=== PATIENT | male | born 1975 | race Caucasian/White ===

== ENCOUNTER 2016-05-14 17:21 | Inpatient (IN) | payer OTHER ==
[2016-05-14] MEDS ORDERED: KETOROLAC 30 MG/1 ML SDV IVP ONE (17:46)
[2016-05-14] MEDS ORDERED: ONDANSETRON 4 MG/2 ML VIAL IVP ONE (17:46)
[2016-05-14] MEDS ORDERED: NS 1,000 ML IV ONE ×2 (17:46→18:51)
[2016-05-14 17:57] LABS: % IMMATURE GRANULYOCYTES 0.2 % (0.0-1.1); ABSOLUTE IMMATURE GRANULOCYTES 0.03 10^3/uL (0.00-0.10); ADD DIFF? NO; ADD MORPH? NO; ADD SCAN? NO; ATYPICAL LYMPHOCYTE FLAG 0 (0-99); FRAGMENT RBC FLAG 0 (0-99); HEMATOCRIT 51.2 % (40.0-51.0); HEMOGLOBIN 18.5 g/dL (13.7-17.5); LEFT SHIFT FLG 0 (0-99); LIPEMIA HEMOLYSIS FLAG 90 (0-99); MEAN CELL HEMOGLOBIN 34.1 pg (27.9-34.1); MEAN CELL HEMOGLOBIN CONCENTR. 36.1 g/dL (32.4-36.7); MEAN CELL VOLUME 94.3 fL (81.5-99.8); MEAN PLATELET VOLUME 9.2 fL (8.7-11.7); PLATELET CLUMPS FLAG 10 (0-99); PLATELET COUNT 206 10^3/uL (150-400); RED BLOOD CELL COUNT 5.43 10^6/uL (4.40-6.38); RED CELL DISTRIBUTION WIDTH 12.8 % (11.5-15.2)
[2016-05-14 18:10] LABS: ALANINE AMINOTRANSFERASE 173 IU/L (21-72); ALBUMIN 3.9 g/dL (3.5-5.0); ALKALINE PHOSPHATASE 105 IU/L (38-126); ANION GAP 20 mEq/L (8-16); ASPARTATE AMINOTRANSFERASE 117 IU/L (17-59); BILIRUBIN,TOTAL 1.4 mg/dL (0.1-1.4); CALCIUM 9.3 mg/dL (8.5-10.4); CARBON DIOXIDE 23 mEq/l (22-31); CHLORIDE 98 mEq/L (97-110); CREATININE 0.9 mg/dL (0.7-1.3); GLOMERULAR FILTRATION RATE > 60; GLUCOSE 173 mg/dL (70-100); POTASSIUM 3.8 mEq/L (3.5-5.2); SODIUM 141 mEq/L (134-144); TOTAL PROTEIN 7.7 g/dL (6.3-8.2)
--- NOTE | 2016-05-14 19:12 | UCPHY ---
H & P Patient Type: New Chief Complaint Nursing Narrative: sharp pain left side and abdomen for 2 days Time Seen by Provider: 05/14/16 17:45 HPI/ROS: This patient reports gradual onset of abdominal pain yesterday in the epigastrium and left upper belly radiating to the back. He describes the pain is initially achy and now sharp in nature. The intensity steadily increased since that 1st started is now 8/10 intensity. The pain worsens with movement he notes no other exacerbating factors. He started having nausea and vomiting associated with the symptoms this morning and vomited 3 times since this morning. He has never had this pain before. ROS: No high fevers or chills. No other constitutional symptoms. HEENT: No URI symptoms. No sore throat. No other complaints. Neuro: No headache. No focal numbness tingling or weakness. Pulmonary: No cough. No shortness of breath. Cardiovascular: No lightheadedness. He denies any heart palpitations. No lower extremity swelling. GI: No hematemesis. He reports normal bowel movements. No dark tarry stools. He does report intermittent mild epigastric pain over the proceeding month with partial relief from omeprazole. : No hematuria. No burning with urination. No testicle pain. Musculoskeletal: No complaints integumentary: No skin rash. 10 point ROS is otherwise negative. Source: Patient Exam Limitations: No limitations - Personal History Current Tetanus Diphtheria and Acellular Pertussis (TDAP): Yes - Medical/Surgical History Hx Asthma: No Hx Chronic Respiratory Disease: No Hx Diabetes: No Hx Cardiac Disease: No Hx Renal Disease: No Hx Cirrhosis: No Hx Alcoholism: No Hx HIV/AIDS: No Hx Splenectomy or Spleen Trauma: No Other PMH: duodenal ulcer - Family History Significant Family History: No pertinent family hx - Social History Smoking Status: Never smoked Alcohol Use: Heavy (The patient admits drinking for 5 drinks a day combination of beers and mixed drinks.) Drug Use: None - Physical Exam Exam: General Appearance: Alert, no distress. Eyes: Pupils equal and round no pallor or injection. ENT, Mouth: Mucous membranes moist. Respiratory: There are no retractions, lungs are clear to auscultation. Cardiovascular: Regular rate and rhythm. Gastrointestinal: Hypoactive bowel sounds with mild distension. The patient has epigastric and left upper quadrant tenderness that is moderate to exquisite. No lower belly tenderness. No organomegaly. Back: No CVA tenderness Neurological: GCS of 15 with no focal sensory or motor deficits Skin: Warm and dry, no rashes. Musculoskeletal: Neck is supple nontender. Extremities are symmetrical, full range of motion. Psychiatric: Mood and affect are normal DIFFERENTIAL DIAGNOSIS: After history and physical exam differential diagnosis was considered for pancreatitis, cholecystitis, ulcer, gastritis, ureteral stone , UTI Constitutional: Initial Vital Signs Temperature (C) 37.2 C 05/14/16 17:30 Heart Rate 101 H 05/14/16 17:30 Respiratory Rate 16 05/14/16 17:30 Blood Pressure 142/81 H 05/14/16 17:30 O2 Sat (%) 96 05/14/16 17:30 O2 Delivery Mode Room Air Allergies/Adverse Reactions: No Known Allergies Allergy (Unverified 05/14/16 17:30) Home Medications: Medication Instructions Recorded Finasteride 05/14/16 Medical Decision Making ED Course/Re-evaluation: IV normal saline bolus. Toradol without significant relief. Morphine with partial relief of pain. Zofran with relief of nausea. Review of his labs reveals elevated lipase, mildly elevated LFTs, mild leukocytosis and hemoconcentration with a crit of 51. His history of regular alcohol intake and pancreatitis is most consistent with alcohol pancreatitis. Cannot rule out gallstone pancreatitis without imaging. At this time we have no ultrasound here at the clinic. Patient agrees to be admitted to [facility]. I spoke with Dr. Barrie Cervantes-hospitalist accepts patient for transfer - Data Points Laboratory Results: Laboratory Results 05/14/16 17:50 05/14/16 17:50 05/14/16 05/14/16 17:50 17:50 WBC 12.76 10^3/uL H 10^3/uL (3.80-9.50) RBC 5.43 10^6/uL 10^6/uL (4.40-6.38) Hgb 18.5 g/dL H g/dL (13.7-17.5) Hct 51.2 % H % (40.0-51.0) MCV 94.3 fL fL (81.5-99.8) MCH 34.1 pg pg (27.9-34.1) MCHC 36.1 g/dL g/dL (32.4-36.7) RDW 12.8 % % (11.5-15.2) Plt Count 206 10^3/uL 10^3/uL (150-400) MPV 9.2 fL fL (8.7-11.7) Neut % (Auto) 83.9 % H % (39.3-74.2) Lymph % (Auto) 10.1 % L % (15.0-45.0) [place] % (Auto) 5.6 % % (4.5-13.0) Eos % (Auto) 0.0 % L % (0.6-7.6) Baso % (Auto) 0.2 % L % (0.3-1.7) Nucleat RBC Rel Count 0.0 % % (0.0-0.2) Absolute Neuts (auto) 10.71 10^3/uL H 10^3/uL (1.70-6.50) Absolute Lymphs (auto) 1.29 10^3/uL 10^3/uL (1.00-3.00) Absolute Monos (auto) 0.71 10^3/uL 10^3/uL (0.30-0.80) Absolute Eos (auto) 0.00 10^3/uL L 10^3/uL (0.03-0.40) Absolute Basos (auto) 0.02 10^3/uL 10^3/uL (0.02-0.10) Absolute Nucleated RBC 0.00 10^3/uL 10^3/uL (0-0.01) Immature Gran % 0.2 % % (0.0-1.1) Immature Gran # 0.03 10^3/uL 10^3/uL (0.00-0.10) Sodium 141 mEq/L mEq/L (134-144) Potassium 3.8 mEq/L mEq/L (3.5-5.2) Chloride 98 mEq/L mEq/L (97-110) Carbon Dioxide 23 mEq/l mEq/l (22-31) Anion Gap 20 mEq/L H mEq/L (8-16) BUN 6 mg/dL L mg/dL (7-23) Creatinine 0.9 mg/dL mg/dL (0.7-1.3) Estimated GFR > 60 Glucose 173 mg/dL H mg/dL (70-100) Calcium 9.3 mg/dL mg/dL (8.5-10.4) Total Bilirubin 1.4 mg/dL mg/dL (0.1-1.4) AST 117 IU/L H IU/L (17-59) ALT 173 IU/L H IU/L (21-72) Alkaline Phosphatase 105 IU/L IU/L (38-126) Total Protein 7.7 g/dL g/dL (6.3-8.2) Albumin 3.9 g/dL g/dL (3.5-5.0) Lipase 4838.0 IU/L H IU/L (23-300) Medications Given: Discontinued Medications Sodium Chloride (Ns) 1,000 mls @ 0 mls/hr IV ONCE ONE PRN Reason: Wide Open Stop: 05/14/16 17:47 Last Admin: 05/14/16 17:59 Dose: 1,000 mls Ketorolac Tromethamine (Toradol) 15 mg IVP EDNOW ONE Stop: 05/14/16 17:47 Last Admin: 05/14/16 18:00 Dose: 15 mg Morphine Sulfate (Morphine) 5 mg IVP EDNOW ONE Stop: 05/14/16 18:21 Last Admin: 05/14/16 18:28 Dose: 5 mg Ondansetron HCl (Zofran) 4 mg IVP EDNOW ONE Stop: 05/14/16 17:47 Last Admin: 05/14/16 18:00 Dose: 4 mg Departure - Departure Disposition: [facility] Inpatient Acute Clinical Impression: Acute pancreatitis Qualifiers: Pancreatitis type: alcohol induced Acute pancreatitis complication: unspecified Qualified Code(s): K85.20 - Alcohol induced acute pancreatitis without necrosis or infection Condition: Fair Referrals: Kamaljit Santos DO [Primary Care Provider] - As per Instructions - PQRS PQRS Measurement: NA
[2016-05-14] MEDS: NS 1,000 ML IV SCH ×2 (19:50→21:58)
[2016-05-14] MEDS ORDERED: ONDANSETRON DISINTEGRATING 4 MG TAB PO PRN (22:16)
[2016-05-14] MEDS ORDERED: PROMETHAZINE HCL 25 MG TAB PO PRN (22:16)
[2016-05-14] MEDS ORDERED: ACETAMINOPHEN 325 MG TAB PO PRN (22:16)
[2016-05-14] MEDS ORDERED: LORazepam 2 MG/ML INJ IVP PRN (22:16)
[2016-05-14] MEDS ORDERED: MAG HYDROX/AL HYDROX/SIMETH 30 ML UDCUP PO PRN (22:16)
[2016-05-14] MEDS ORDERED: NS 1,000 ML IV SCH (22:30)
--- NOTE | 2016-05-14 22:51 | PDGENHP ---
History and Physical - Chief Complaint abd pain - History of Present Illness 41 yo M with no significant PMH other than etoh abuse and recent diagnosis of presumed PUD presenting with abdominal pain, n/v, inability to tolerate PO since yesterday. He notes that it began similarly to his recent bouts with presumed ulcers that was diagnosed and treated by his PCP, but then got much worse. His prior bouts went away with antacids, but since last night into today , he has had significantly worsening abdominal pain, that is now severe and only minimally improved after 6mg morphine IVP. Eating made the pain much worse , and he has not eaten since yesterday. He notes that he has been under a lot of stress recently around the loss of his job and not having a strong support system to fall back on, and for that reason, he has been drinking more alcohol than usual. When I ask how much, he replies "a lot" and really isn't able to quantify further. He notes he drinks at least 5 x week and previously was drinking around 5 drinks per day, but now drinks more than that. He often wakes up in the morning and has to vomit. He has not had withdrawal symptoms on the days he does not drink. He has not had bloody or coffee ground-like emesis. He has not had a BM in 2 days, and is not passing gas. Urination has been normal, and last urination was 2 hours ago. History Information - Allergies/Home Medication List Allergies/Adverse Reactions: No Known Allergies Allergy (Unverified 05/14/16 17:30) Home Medications: Finasteride [Propecia] 0.5 mg PO DAILY 05/14/16 [Last Taken 05/13/16] Temazepam Unk Dose HS 05/14/16 [Last Taken Unknown] I have personally reviewed and updated: family history, medical history, social history, surgical history - Past Medical History GERD Additional medical history: alcohol abuse - Surgical History Reports: no pertinent surgical hx - Family History Positive for: non-pertinent - Social History Smoking Status: Never smoked Alcohol Use: Heavy (The patient admits drinking for 5 drinks a day combination of beers and mixed drinks.) Drug Use: None Review of Systems ROS: 10pt was reviewed & negative except for what was stated in HPI & below Physical Exam Temp Pulse Resp BP Pulse Ox 36.8 C 114 H 22 H 131/89 H 97 05/14/16 21:22 05/14/16 21:22 05/14/16 21:22 05/14/16 21:22 05/14/16 21:22 Constitutional: appears nourished, uncomfortable Eyes: PERRL, anicteric sclera Ears, Nose, Mouth, Throat: moist mucous membranes, hearing normal Cardiovascular: no murmur, rub, or gallop, tachycardia, No edema Respiratory: no respiratory distress, no rales or rhonchi, clear to auscultation Gastrointestinal: no palpable masses, tenderness, distension, No normoactive bowel sounds, No ascites, No guarding, No rebound Genitourinary: no bladder tenderness Skin: warm, normal color Musculoskeletal: full muscle strength, no muscle tenderness Neurologic: AAOx3 Psychiatric: interacting appropriately, not anxious, not encephalopathic Lab Data & Imaging Review 05/14/16 17:50 05/14/16 17:50 WBC 12.76 10^3/uL (3.80-9.50) H 05/14/16 17:50 RBC 5.43 10^6/uL (4.40-6.38) 05/14/16 17:50 Hgb 18.5 g/dL (13.7-17.5) H 05/14/16 17:50 Hct 51.2 % (40.0-51.0) H 05/14/16 17:50 MCV 94.3 fL (81.5-99.8) 05/14/16 17:50 MCH 34.1 pg (27.9-34.1) 05/14/16 17:50 MCHC 36.1 g/dL (32.4-36.7) 05/14/16 17:50 RDW 12.8 % (11.5-15.2) 05/14/16 17:50 Plt Count 206 10^3/uL (150-400) 05/14/16 17:50 MPV 9.2 fL (8.7-11.7) 05/14/16 17:50 Neut % (Auto) 83.9 % (39.3-74.2) H 05/14/16 17:50 Lymph % (Auto) 10.1 % (15.0-45.0) L 05/14/16 17:50 [place] % (Auto) 5.6 % (4.5-13.0) 05/14/16 17:50 Eos % (Auto) 0.0 % (0.6-7.6) L 05/14/16 17:50 Baso % (Auto) 0.2 % (0.3-1.7) L 05/14/16 17:50 Nucleat RBC Rel Count 0.0 % (0.0-0.2) 05/14/16 17:50 Absolute Neuts (auto) 10.71 10^3/uL (1.70-6.50) H 05/14/16 17:50 Absolute Lymphs (auto) 1.29 10^3/uL (1.00-3.00) 05/14/16 17:50 Absolute Monos (auto) 0.71 10^3/uL (0.30-0.80) 05/14/16 17:50 Absolute Eos (auto) 0.00 10^3/uL (0.03-0.40) L 05/14/16 17:50 Absolute Basos (auto) 0.02 10^3/uL (0.02-0.10) 05/14/16 17:50 Absolute Nucleated RBC 0.00 10^3/uL (0-0.01) 05/14/16 17:50 Immature Gran % 0.2 % (0.0-1.1) 05/14/16 17:50 Immature Gran # 0.03 10^3/uL (0.00-0.10) 05/14/16 17:50 Sodium 141 mEq/L (134-144) 05/14/16 17:50 Potassium 3.8 mEq/L (3.5-5.2) 05/14/16 17:50 Chloride 98 mEq/L (97-110) 05/14/16 17:50 Carbon Dioxide 23 mEq/l (22-31) 05/14/16 17:50 Anion Gap 20 mEq/L (8-16) H 05/14/16 17:50 BUN 6 mg/dL (7-23) L 05/14/16 17:50 Creatinine 0.9 mg/dL (0.7-1.3) 05/14/16 17:50 Estimated GFR > 60 05/14/16 17:50 Glucose 173 mg/dL (70-100) H 05/14/16 17:50 Calcium 9.3 mg/dL (8.5-10.4) 05/14/16 17:50 Total Bilirubin 1.4 mg/dL (0.1-1.4) 05/14/16 17:50 AST 117 IU/L (17-59) H 05/14/16 17:50 ALT 173 IU/L (21-72) H 05/14/16 17:50 Alkaline Phosphatase 105 IU/L (38-126) 05/14/16 17:50 Total Protein 7.7 g/dL (6.3-8.2) 05/14/16 17:50 Albumin 3.9 g/dL (3.5-5.0) 05/14/16 17:50 Lipase 4838.0 IU/L (23-300) H 05/14/16 17:50 Assessment & Plan Assessment: Acute pancreatitis (Acute) 41 yo M with PMH of etoh abuse and recent increased alcohol use presenting with epigastric abd pain/n/v in the setting of acute pancreatitis. # acute pancreatitis: Presumed 2/2 alcoholic pancreatitis given the history. He has mildly elevated LFTs and lipase > 4000, will trend LFTs, will obtain RUQ US to r/o concurrent gallstones or e/o chronic liver disease. NPO, IV opiates, IV antiemetics. # etoh abuse: patient not able to give a clear answer of how much he is drinking , but sounds like anywhere from 5-10 or more drinks per day with rare days without etoh intake. High risk for withdrawal. Started on ciwa, mvi, thiamine, folate. Difficult to assess his readiness to quit given his acute distress from above. # transaminitis: mild and in setting of acute pancreatitis as above, alt > ast and not clearly c/w alc hep, trending, ruq US, consider addition of hep serologies if not improving # hx of ulcers: unclear if this was an accurate diagnosis or if patient might have been having bouts of pancreatitis prior to this presentation given that sxs were essentially the same, # hemoconcentration: wbc/hgb/hct all elevated in the setting of likely hemoconcentration, will repeat post IVF # dispo: observation status, though given severity of presenting issues he may require IP stay Patient new to my care. Urgent care records reviewed, summarized as above. Care plan reviewed with physician including plans for tx of pancreatitis.
[2016-05-14] MEDS: HYDROmorphONE/DILAUDID 1 MG/ML SYR IVP PRN (22:55)
[2016-05-14] MEDS: KETOROLAC 30 MG/1 ML SDV IVP PRN (22:58)
[2016-05-14] MEDS: LORazepam 1 MG TAB PO PRN (22:59)
[2016-05-15] MEDS: HYDROmorphONE/DILAUDID 1 MG/ML SYR IVP PRN ×4 (05:40→17:48)
[2016-05-15] MEDS: KETOROLAC 30 MG/1 ML SDV IVP PRN ×3 (05:40→20:21)
[2016-05-15] MEDS: LORazepam 1 MG TAB PO PRN ×3 (05:42→21:20)
[2016-05-15 06:00] LABS: % IMMATURE GRANULYOCYTES 0.3 % (0.0-1.1); ABSOLUTE IMMATURE GRANULOCYTES 0.04 10^3/uL (0.00-0.10); ADD DIFF? NO; ADD MORPH? NO; ADD SCAN? NO; ATYPICAL LYMPHOCYTE FLAG 0 (0-99); FRAGMENT RBC FLAG 0 (0-99); HEMATOCRIT 48.2 % (40.0-51.0); HEMOGLOBIN 17.1 g/dL (13.7-17.5); LEFT SHIFT FLG 30 (0-99); LIPEMIA HEMOLYSIS FLAG 90 (0-99); MEAN CELL HEMOGLOBIN 33.9 pg (27.9-34.1); MEAN CELL HEMOGLOBIN CONCENTR. 35.5 g/dL (32.4-36.7); MEAN CELL VOLUME 95.6 fL (81.5-99.8); MEAN PLATELET VOLUME 9.8 fL (8.7-11.7); PLATELET CLUMPS FLAG 30 (0-99); PLATELET COUNT 160 10^3/uL (150-400); RED BLOOD CELL COUNT 5.04 10^6/uL (4.40-6.38); RED CELL DISTRIBUTION WIDTH 13.4 % (11.5-15.2)
[2016-05-15 06:03] LABS: COLOR AMBER; LEUKOCYTE ESTERASE,URINE NEGATIVE (NEGATIVE); NITRITE,URINE NEGATIVE (NEGATIVE)
[2016-05-15 06:11] LABS: MUCUS 2+ /lpf (NONE-1+)
[2016-05-15 06:33] LABS: ALANINE AMINOTRANSFERASE 109 IU/L (21-72); ALBUMIN 3.4 g/dL (3.5-5.0); ALKALINE PHOSPHATASE 58 IU/L (38-126); ANION GAP 9 mEq/L (8-16); ASPARTATE AMINOTRANSFERASE 77 IU/L (17-59); BILIRUBIN,TOTAL 2.1 mg/dL (0.1-1.4); CALCIUM 7.6 mg/dL (8.5-10.4); CARBON DIOXIDE 23 mEq/l (22-31); CHLORIDE 107 mEq/L (97-110); CREATININE 0.8 mg/dL (0.7-1.3); GLOMERULAR FILTRATION RATE > 60; GLUCOSE 140 mg/dL (70-100); MAGNESIUM 1.3 mg/dL (1.6-2.3); POTASSIUM 4.3 mEq/L (3.5-5.2); SODIUM 139 mEq/L (134-144); TOTAL PROTEIN 6.3 g/dL (6.3-8.2)
[2016-05-15 06:42] LABS: BILIRUBIN-CONJUGATED 0.9 mg/dL (0.0-0.5); BILIRUBIN-UNCONJUGATED 1.2 mg/dL (0.0-1.1)
[2016-05-15] MEDS: FAMOTIDINE 20 MG TAB PO SCH ×2 (11:47→21:21)
[2016-05-15] MEDS ORDERED: MAGNESIUM HYDROXIDE 30 ML UDCUP PO PRN (12:53)
[2016-05-15] MEDS ORDERED: BISACODYL 10 MG SUPP PR PRN (12:53)
[2016-05-15] MEDS ORDERED: POLYETHYLENE GLYCOL 3350 17 GM PKT PO PRN (12:53)
[2016-05-15] MEDS ORDERED: LACTULOSE 20 GM/30 ML UDCUP PO PRN (12:53)
[2016-05-15] MEDS ORDERED: TEMAZEPAM 15 MG CAP PO PRN (12:53)
--- NOTE | 2016-05-15 12:54 | HOSPPROG ---
Hospitalist Progress Note Assessment/Plan: #Alcoholic pancreatitis: no stones on U/S -keep NPO, IVFs, IV opioids PRN #Abd distension: constipated. No ascites on U/S #Alcohol abuse: has had several stressors over past few months, thus drinking more. Wants to quit. Declines further assistance. CIWA #Acute abd pain: due to pancreatitis. Cont IV opioids #Transaminitis: improving. Due to Etoh #Leukocytosis: stress-response. Afebrile. Cont to monitor #Diet: NPO, IVFs #Disp: Dc once tolerating PO pain meds and food Subjective: still 6/10 pain this morning. Constipated Objective: Vital Signs Temp Pulse Resp BP Pulse Ox 36.7 C 110 H 20 123/92 H 97 05/15/16 09:04 05/15/16 09:04 05/15/16 09:04 05/15/16 09:04 05/15/16 09:04 Laboratory Results 05/15/16 05:40 05/15/16 05:40 05/14/16 05/15/16 05/16/16 05:59 05:59 05:59 Intake Total 3815 Output Total 300 200 Balance 3515 -200 - Physical Exam Constitutional: no apparent distress Eyes: PERRL Ears, Nose, Mouth, Throat: moist mucous membranes, hearing normal Cardiovascular: regular rate and rhythym, no murmur, rub, or gallop Respiratory: no respiratory distress, no rales or rhonchi Gastrointestinal: normoactive bowel sounds, distension (no TTP) Genitourinary: no bladder fullness, no bladder tenderness Skin: warm, normal color Musculoskeletal: full muscle strength Neurologic: AAOx3, CN II-XII Intact, other (no tremor) Psychiatric: interacting appropriately ICD10 Worksheet Patient Problems: Problems Problem Status Onset Acute pancreatitis Acute
[2016-05-15] MEDS: NS 1,000 ML IV SCH ×3 (13:13→21:27)
[2016-05-15] MEDS: MULTIVITAMINS 1 EACH TAB PO SCH (13:18)
[2016-05-15] MEDS: FOLIC ACID 1 MG TAB PO SCH (13:18)
[2016-05-15] MEDS: THIAMINE HCL 100 MG TAB PO SCH (13:18)
[2016-05-15] MEDS: THIAMINE HCL 100 MG in NS 100 ML IV SCH (15:04)
[2016-05-15] MEDS: SENNOSIDES/DOCUSATE SODIUM TAB PO SCH (21:27)
[2016-05-16] MEDS: LORazepam 1 MG TAB PO PRN ×4 (01:02→17:07)
[2016-05-16] MEDS: HYDROmorphONE/DILAUDID 1 MG/ML SYR IVP PRN (01:17)
[2016-05-16] MEDS: NS 1,000 ML IV SCH (01:17)
[2016-05-16 05:34] LABS: HEMATOCRIT 44.9 % (40.0-51.0); HEMOGLOBIN 15.3 g/dL (13.7-17.5); MEAN CELL HEMOGLOBIN 33.6 pg (27.9-34.1); MEAN CELL HEMOGLOBIN CONCENTR. 34.1 g/dL (32.4-36.7); MEAN CELL VOLUME 98.7 fL (81.5-99.8); RED BLOOD CELL COUNT 4.55 10^6/uL (4.40-6.38); RED CELL DISTRIBUTION WIDTH 13.2 % (11.5-15.2)
[2016-05-16 05:48] LABS: ANION GAP 11 mEq/L (8-16); CARBON DIOXIDE 20 mEq/l (22-31); CHLORIDE 105 mEq/L (97-110); CREATININE 0.9 mg/dL (0.7-1.3); GLOMERULAR FILTRATION RATE > 60; GLUCOSE 91 mg/dL (70-100); MAGNESIUM 1.3 mg/dL (1.6-2.3); POTASSIUM 4.1 mEq/L (3.5-5.2); SODIUM 136 mEq/L (134-144)
[2016-05-16] MEDS: KETOROLAC 30 MG/1 ML SDV IVP PRN (08:12)
[2016-05-16] MEDS: FOLIC ACID 1 MG TAB PO SCH (08:12)
[2016-05-16] MEDS: THIAMINE HCL 100 MG TAB PO SCH (08:12)
[2016-05-16] MEDS: FAMOTIDINE 20 MG TAB PO SCH ×2 (08:12→20:55)
[2016-05-16] MEDS: MULTIVITAMINS 1 EACH TAB PO SCH (08:12)
[2016-05-16] MEDS: SENNOSIDES/DOCUSATE SODIUM TAB PO SCH ×2 (08:13→20:55)
[2016-05-16] MEDS ORDERED: KETOROLAC 30 MG/1 ML SDV IVP PRN (10:09)
[2016-05-16] MEDS: ENOXAPARIN 40 MG/0.4 ML SYR SC SCH (10:41)
[2016-05-16] MEDS: chlordiazePOXIDE 25 MG CAP PO SCH ×2 (10:41→20:55)
[2016-05-16] MEDS: THIAMINE HCL 100 MG in NS 100 ML IV SCH (10:47)
[2016-05-16] MEDS: IPRATROPIUM/ALBUTEROL 3 ML DEYVIAL IH PRN (14:23)
--- NOTE | 2016-05-16 14:45 | HOSPPROG ---
Hospitalist Progress Note Assessment/Plan: Assessment: 41-year-old male presents with acute alcohol-induced pancreatitis complicated by acute alcohol withdrawal, systemic inflammatory response syndrome Plan: # Alcoholic-induced pancreatitis: evidenced by epigastric pain, elevated lipase , no stones on U/S - crissy sips, adv to full liq and light if tolerates - cont IVF at 100cc/hr - cycle in PO pain Rx w/ IV for breakthrough # Constipation: bowel regimen # Acute alcohol withdraw: evidenced by tachycardia + tremulousness, cont to score on CIWA - counseled patient about strategies, will place on scheduled librium, cont PRN ativan - clinically escalating, remains unresolved # Transaminitis: 2/2 alcohol w/ steatosis on US, cont to monitor # SIRS: acute, e/o clinically unresolved pancreatitis/withdraw, get CXR to ensure no volume overload in setting of IVF Diet. Full liq, adv as crissy PPx. High risk, lovenox 40 Code. Full Dispo. ADD uncertain, upgrade to inpatient admission status for reasonable medical necessity re: clinically unresolved pancreatitis and acute alcohol withdraw, SIRS worsening today Subjective: Patient reports ongoing anxiety and intermittent abdominal pain Objective: Vital Signs Temp Pulse Resp BP Pulse Ox 36.9 C 144 H 19 124/81 H 98 05/16/16 11:23 05/16/16 14:34 05/16/16 11:23 05/16/16 11:23 05/16/16 14:34 Laboratory Results 05/16/16 05:20 05/16/16 05:20 05/15/16 05/16/16 05/17/16 05:59 05:59 05:59 Intake Total 1400 Output Total 925 Balance 475 - Time Spent With Patient Time Spent with Patient: greater than 35 minutes Time Spent with Patient: Greater than 35 minutes spent on this patients care, greater than 50% of time spent counseling, educating, and coordinating care regarding the above mentioned plan. - Physical Exam Constitutional: uncomfortable, No not in pain Cardiovascular: tachycardia, No systolic murmur, No irregularly irregular, No edema Respiratory: no respiratory distress, no rales or rhonchi, clear to auscultation Gastrointestinal: distension (Moderate), No normoactive bowel sounds ( Diminished bowel sounds), No guarding Neurologic: AAOx3, No asterixes (Tremulousness present) Psychiatric: not encephalopathic, anxious, No agitated ICD10 Worksheet Patient Problems: Problems Problem Status Onset Acute pancreatitis Acute
[2016-05-16] MEDS: oxyCODONE IR 5 MG TAB PO PRN (15:56)
[2016-05-17] MEDS: oxyCODONE IR 5 MG TAB PO PRN ×2 (00:06→07:34)
[2016-05-17] MEDS: IPRATROPIUM/ALBUTEROL 3 ML DEYVIAL IH PRN (00:59)
[2016-05-17 05:28] LABS: % IMMATURE GRANULYOCYTES 1.2 % (0.0-1.1); ABSOLUTE IMMATURE GRANULOCYTES 0.12 10^3/uL (0.00-0.10); ADD DIFF? NO; ADD MORPH? NO; ADD SCAN? NO; ATYPICAL LYMPHOCYTE FLAG 0 (0-99); FRAGMENT RBC FLAG 0 (0-99); HEMATOCRIT 46.6 % (40.0-51.0); HEMOGLOBIN 16.1 g/dL (13.7-17.5); LEFT SHIFT FLG 50 (0-99); LIPEMIA HEMOLYSIS FLAG 90 (0-99); MEAN CELL HEMOGLOBIN CONCENTR. 34.5 g/dL (32.4-36.7); MEAN CELL VOLUME 98.3 fL (81.5-99.8); MEAN PLATELET VOLUME 10.3 fL (8.7-11.7); PLATELET CLUMPS FLAG 0 (0-99); PLATELET COUNT 138 10^3/uL (150-400); RED BLOOD CELL COUNT 4.74 10^6/uL (4.40-6.38)
[2016-05-17 05:37] LABS: ALANINE AMINOTRANSFERASE 75 IU/L (21-72); ALBUMIN 3.2 g/dL (3.5-5.0); ALKALINE PHOSPHATASE 65 IU/L (38-126); ANION GAP 15 mEq/L (8-16); ASPARTATE AMINOTRANSFERASE 61 IU/L (17-59); BILIRUBIN,TOTAL 1.7 mg/dL (0.1-1.4); CALCIUM 8.1 mg/dL (8.5-10.4); CARBON DIOXIDE 23 mEq/l (22-31); CHLORIDE 102 mEq/L (97-110); CREATININE 0.8 mg/dL (0.7-1.3); GLOMERULAR FILTRATION RATE > 60; GLUCOSE 110 mg/dL (70-100); MAGNESIUM 1.7 mg/dL (1.6-2.3); POTASSIUM 3.3 mEq/L (3.5-5.2); SODIUM 140 mEq/L (134-144); TOTAL PROTEIN 6.5 g/dL (6.3-8.2)
[2016-05-17 08:17] VITALS: BP 135/82; PULSE 116; RESP 18; TEMP 98.3
[2016-05-17] MEDS ORDERED: MAGNESIUM SULF 1 GM/DEXTROSE 100 ML IV ONE (08:59)
[2016-05-17] MEDS ORDERED: POTASSIUM CL 20 MEQ TAB PO ONE (08:59)
[2016-05-17] MEDS ORDERED: FINASTERIDE 0.5 MG PO SCH (09:00)
[2016-05-17] MEDS: chlordiazePOXIDE 25 MG CAP PO SCH (09:05)
[2016-05-17] MEDS: FAMOTIDINE 20 MG TAB PO SCH (09:05)
[2016-05-17] MEDS: THIAMINE HCL 100 MG TAB PO SCH (09:05)
[2016-05-17] MEDS: FOLIC ACID 1 MG TAB PO SCH (09:05)
[2016-05-17] MEDS: MULTIVITAMINS 1 EACH TAB PO SCH (09:05)
[2016-05-17] MEDS: SENNOSIDES/DOCUSATE SODIUM TAB PO SCH (09:13)
[2016-05-17] MEDS: ENOXAPARIN 40 MG/0.4 ML SYR SC SCH (09:17)
--- NOTE | 2016-05-17 11:54 | PDDCSUM ---
Discharge Summary Discharge Summary: DISCHARGE SUMMARY FOLLOW-UP ITEMS: Follow-up liver panel and CBC as an outpatient DATE OF ADMISSION: 05/14/2016 DATE OF DISCHARGE: 05/17/2016 DISCHARGE DIAGNOSES: 1. Acute alcohol induced pancreatitis 2. Acute alcohol withdrawal 3. Systemic inflammatory response syndrome 4. Transaminitis CONSULTATIONS: None PROCEDURES / IMAGING: Chest x-ray demonstrating no evidence of volume overload CHIEF COMPLAINT: Acute nausea and abdominal discomfort SUBJECTIVE: Patient is feeling well at time of discharge, he has required some oral pain medications prior to discharge is tolerating well PHYSICAL EXAM ON DISCHARGE: Systolic blood pressure is 130, heart rate 110, afebrile overnight, non tremulous on exam, abdomen is soft nontender nondistended, bowel sounds are present, breath sounds are clear to auscultation bilaterally LABS ON DISCHARGE: Hemoglobin 16.1, white blood cell count 68942, creatinine 0.8, potassium 3.3 HOSPITAL COURSE BY PROBLEM: 1. Acute alcohol induced pancreatitis. Evidence by epigastric pain, elevated lipase level, no evidence of stone on ultrasound. Patient was made NPO, given high rate IV fluids, given IV pain medications. His clinical process rapidly resolved and his diet was advanced to full liquids and then light low-fat diet, which she is currently tolerating well. The discharged home on as needed oral oxycodone and oral Zofran, limited supply. Recommended alcohol cessation as well as low-fat diet, recommended immediate follow up with his primary care provider. 2. Acute alcohol withdrawal. Evidenced by tachycardia plus tremulousness as well as regular scoring on CIWA. The patient was amenable to a Librium taper to help facilitate outpatient treatment and 1 was initiated on 05/16 successfully. The patient will be continued on 1 subsequent day of Librium 3 times daily, then tapered to twice daily tomorrow for 2 days, then once daily for 2 days, then off. Advised against drinking while he is taking Librium and I advised him to follow up with his primary care provider. 3. Transaminitis. Most likely secondary to alcohol with steatosis on ultrasound , patient should have outpatient labs performed with his primary care provider to establish baseline. 4. Systemic inflammatory response syndrome. Tachycardia and leukocytosis without evidence of infection. Chest x-ray demonstrated no pneumonia, and he may have a resolving URI, for which mucinex was advised. He has no reactive airways. His leukocytosis was down trending at time of discharge and his persistent tachycardia was most likely secondary to alcohol withdrawal. Given that the patient is euvolemic, mentating well and he is amenable to an outpatient living taper, he is safe for discharge home at this time. DISCHARGE MEDICATIONS: Please see official discharge medication reconciliation sheet in chart , Librium 25 mg 3 times daily today, then twice daily for 2 days, then once daily for 2 days, as needed oxycodone immediate release, 10 tab prescribed, as-needed Zofran 4 mg, 20 tablets prescribed, Mucinex as needed. DISCHARGE INSTRUCTIONS: Patient should follow up with his primary care provider in the short term and avoid alcohol and fatty foods. TIME SPENT: Greater than 30 minutes were spent on direct patient care, as well as discharge planning and preparation.
[2016-05-17 12:13] VITALS: O2SAT 92
== END 2016-05-17 11:50 | disposition home or self-care (01) | DRG 439 ==
LOC: CED 17:21 → CEDHOLD 18:58 → INTOOBSV 18:58 → F1N 21:21 → OBSVTOIN 05-15 13:32 → F3E 05-16 17:17
PROVIDERS: ADMIT Internal Medicine; ATTEND Internal Medicine
DX: K85.20 Alcohol induced acute pancreatitis without necrosis or infection (principal); F10.239 Alcohol dependence with withdrawal, unspecified; R74.0 Nonspecific elevation of levels of transaminase and lactic acid dehydrogenase [LDH]
CPT/HCPCS: 80053-PO; 83690-PO; 85025-PO; 96361-PO; 96374-PO; 96375-PO; 96376-PO; G0378; G0463-PO; J1170; J1650; J1885; J2405; J3411

== ENCOUNTER 2016-05-21 08:07 | Emergency (ER) | payer OTHER ==
[2016-05-21 08:19] VITALS: O2SAT 95
[2016-05-21] MEDS ORDERED: NS 1,000 ML IV ONE (09:01)
--- NOTE | 2016-05-21 09:03 | UCPHY ---
H & P Patient Type: Established Chief Complaint Nursing Narrative: ABDOMIAN PAIN SEEN HERE ON MONDAY, HAS APPT. WITH PMD ON MONDAY RAN OUT OF PAIN MED Time Seen by Provider: 05/21/16 08:58 HPI/ROS: CHIEF COMPLAINT: Abdominal pain History by patient HISTORY OF PRESENT ILLNESS: 41-year-old man who presents complaining of left upper quadrant pain which he describes as severe, sharp and intermittent but lasting several hours at a time when it comes. Patient was discharged from the hospital after acute alcoholic pancreatitis 2 days ago. He was sent home on oxycodone which he says was helping the pain but now he has run out. He says his nausea and vomiting has resolved and he has been able to drink fluids and eat small amount of bland food but he continues to get this severe left upper quadrant pain. He says he is having normal bowel movements now. He denies any fever. He denies continued alcohol use. He is currently taking Librium. This is his 1st episode of pancreatitis. Patient denies using opioid pain medications in the past. He does have a brother who is an ex heroin addict. REVIEW OF SYSTEMS: As in HPI, and all other systems reviewed and are negative - Personal History Current Tetanus Diphtheria and Acellular Pertussis (TDAP): Yes - Medical/Surgical History Hx Asthma: No Hx Chronic Respiratory Disease: No Hx Diabetes: No Hx Cardiac Disease: No Hx Renal Disease: No Hx Cirrhosis: No Hx Alcoholism: No Hx HIV/AIDS: No Hx Splenectomy or Spleen Trauma: No Other PMH: duodenal ulcer-2017;S/P T&A-childhood - Family History Significant Family History: No pertinent family hx - Social History Smoking Status: Never smoked Alcohol Use: Sober Drug Use: None - Physical Exam Exam: General Appearance: Alert, nontoxic-appearing. Eyes: Pupils equal and round no pallor or injection. ENT, Mouth: Mucous membranes moist. Respiratory: Normal, effort, There are no retractions, lungs are clear to auscultation. Cardiovascular: Regular rate and rhythm. Gastrointestinal: Abdomen is soft and nontender, no masses, bowel sounds normal. Back: No CVA tenderness Neurological: Awake, alert and oriented x 3, no pronator drift, normal gait, no pronator drift Skin: Warm and dry, no rashes. Musculoskeletal: Neck is supple nontender. Extremities are symmetrical, full range of motion. Psychiatric: Patient has normal affect, there is no agitation. Constitutional: Initial Vital Signs Temperature (C) 100.6 C H 05/21/16 08:15 Heart Rate 112 H 05/21/16 08:15 Respiratory Rate 20 05/21/16 08:15 Blood Pressure 124/89 H 05/21/16 08:15 O2 Sat (%) 95 05/21/16 08:15 O2 Delivery Mode Room Air Allergies/Adverse Reactions: No Known Allergies Allergy (Unverified 05/21/16 08:14) Home Medications: Medication Instructions Recorded Finasteride [Propecia] 0.5 mg PO DAILY 05/14/16 Ondansetron Odt [Zofran Odt 4 mg 4 mg PO Q4HRS PRN #20 tab 05/17/16 (*)] chlordiazePOXIDE [Librium 25 mg 25 mg PO TID #8 cap 05/17/16 (*)] guaiFENesin [Mucinex] 1,200 mg PO BID #10 tab.er.12h 05/17/16 oxyCODONE IR [Oxycodone Ir (*)] 5 - 10 mg PO Q4HRS PRN #10 tab 05/17/16 Medical Decision Making ED Course/Re-evaluation: Patient presents with ongoing left upper quadrant pain after recent episode of alcoholic pancreatitis. Patient is noted to be tachycardic with low-grade fever but normal blood pressure. He was given IV fluids and Haldol and labs were checked to evaluate for recurrent pancreatitis or other new metabolic problems. Labs are unremarkable. Urinalysis shows no evidence of bladder infection. Patient is slightly improved after fluids and Haldol. The cause of his ongoing pain is unclear, but there is no evidence of acute surgical process or systemic toxicity. Patient initially wanted just a refill of his oxycodone. We discussed how he is at high risk for addiction and problems with ongoing use of opioid pain medicine for his symptoms to his alcohol dependence and family history. Patient was encouraged to get counseling and support to help him maintain his sobriety. He has an appointment pending with his primary care physician on Monday. We discussed non opioid pain management strategies at home including judicious use of ibuprofen, Tylenol, warm and cold packs and topical lidocaine patches. - Data Points Laboratory Results: Laboratory Results 05/21/16 09:20 05/21/16 09:20 05/21/16 05/21/16 05/21/16 09:35 09:20 09:20 WBC 11.91 10^3/uL H 10^3/uL (3.80-9.50) RBC 4.30 10^6/uL L 10^6/uL (4.40-6.38) Hgb 14.6 g/dL g/dL (13.7-17.5) Hct 41.9 % % (40.0-51.0) MCV 97.4 fL fL (81.5-99.8) MCH 34.0 pg pg (27.9-34.1) MCHC 34.8 g/dL g/dL (32.4-36.7) RDW 13.5 % % (11.5-15.2) Plt Count 325 10^3/uL 10^3/uL (150-400) MPV 9.7 fL fL (8.7-11.7) Neut % (Auto) 72.2 % % (39.3-74.2) Lymph % (Auto) 16.4 % % (15.0-45.0) Swisher % (Auto) 8.6 % % (4.5-13.0) Eos % (Auto) 1.3 % % (0.6-7.6) Baso % (Auto) 0.3 % % (0.3-1.7) Nucleat RBC Rel Count 0.0 % % (0.0-0.2) Absolute Neuts (auto) 8.59 10^3/uL H 10^3/uL (1.70-6.50) Absolute Lymphs (auto) 1.95 10^3/uL 10^3/uL (1.00-3.00) Absolute Monos (auto) 1.03 10^3/uL H 10^3/uL (0.30-0.80) Absolute Eos (auto) 0.16 10^3/uL 10^3/uL (0.03-0.40) Absolute Basos (auto) 0.04 10^3/uL 10^3/uL (0.02-0.10) Absolute Nucleated RBC 0.00 10^3/uL 10^3/uL (0-0.01) Immature Gran % 1.2 % H % (0.0-1.1) Immature Gran # 0.14 10^3/uL H 10^3/uL (0.00-0.10) Sodium 141 mEq/L mEq/L (134-144) Potassium 4.0 mEq/L mEq/L (3.5-5.2) Chloride 99 mEq/L mEq/L (97-110) Carbon Dioxide 28 mEq/l mEq/l (22-31) Anion Gap 14 mEq/L mEq/L (8-16) BUN 7 mg/dL mg/dL (7-23) Creatinine 0.8 mg/dL mg/dL (0.7-1.3) Estimated GFR > 60 Glucose 112 mg/dL H mg/dL (70-100) Calcium 8.8 mg/dL mg/dL (8.5-10.4) Total Bilirubin 0.9 mg/dL mg/dL (0.1-1.4) Conjugated Bilirubin 0.4 mg/dL mg/dL (0.0-0.5) Unconjugated Bilirubin 0.5 mg/dL mg/dL (0.0-1.1) AST 40 IU/L IU/L (17-59) ALT 69 IU/L IU/L (21-72) Alkaline Phosphatase 103 IU/L IU/L (38-126) Total Protein 6.4 g/dL g/dL (6.3-8.2) Albumin 2.9 g/dL L g/dL (3.5-5.0) Lipase 410.0 IU/L H IU/L (23-300) Urine Color YELLOW Urine Appearance CLEAR Urine pH 7.0 (5.0-7.5) Ur Specific [place] <= 1.005 (1.002-1.030) Urine Protein NEGATIVE (NEGATIVE) Urine Ketones NEGATIVE (NEGATIVE) Urine Blood NEGATIVE (NEGATIVE) Urine Nitrate NEGATIVE (NEGATIVE) Urine Bilirubin NEGATIVE (NEGATIVE) Urine Urobilinogen 0.2 EU EU (0.2-1.0) Ur Leukocyte Esterase NEGATIVE (NEGATIVE) Ur Culture Indicated? NOT INDICATED (NI) Urine Glucose NEGATIVE (NEGATIVE) Medications Given: Discontinued Medications Haloperidol Lactate (Haldol Injection) 2.5 mg IVP EDNOW ONE Stop: 05/21/16 09:22 Last Admin: 05/21/16 09:27 Dose: 2.5 mg Departure - Departure Disposition: Home, Routine, Self-Care Condition: Fair Instructions: Abdominal Pain (ED) Additional Instructions: You were seen by Dr. Whit Wynne today. Return for any worsening or new concerns. Cause of ear pain today is unclear however all your blood work shows no acute problem. Continue to abstain from alcohol. Try Tylenol and/or ibuprofen as needed for pain and use hot and cold packs. Avoid opioids as these are more likely to cause chronic problems and to be helpful. Follow up with your primary care physician as scheduled on Monday. Referrals: Kamaljit Santos DO [Primary Care Provider] - As per Instructions - PQRS PQRS Measurement: NA
[2016-05-21] MEDS ORDERED: HALOPERIDOL LACT 5 MG/ML INJ IVP ONE (09:21)
[2016-05-21 09:32] LABS: % IMMATURE GRANULYOCYTES 1.2 % (0.0-1.1); ABSOLUTE IMMATURE GRANULOCYTES 0.14 10^3/uL (0.00-0.10); ADD DIFF? NO; ADD MORPH? NO; ADD SCAN? NO; ATYPICAL LYMPHOCYTE FLAG 70 (0-99); FRAGMENT RBC FLAG 0 (0-99); HEMATOCRIT 41.9 % (40.0-51.0); HEMOGLOBIN 14.6 g/dL (13.7-17.5); LEFT SHIFT FLG 10 (0-99); LIPEMIA HEMOLYSIS FLAG 90 (0-99); MEAN CELL HEMOGLOBIN CONCENTR. 34.8 g/dL (32.4-36.7); MEAN CELL VOLUME 97.4 fL (81.5-99.8); MEAN PLATELET VOLUME 9.7 fL (8.7-11.7); PLATELET CLUMPS FLAG 10 (0-99); PLATELET COUNT 325 10^3/uL (150-400); RED CELL DISTRIBUTION WIDTH 13.5 % (11.5-15.2)
[2016-05-21 09:43] LABS: COLOR YELLOW; LEUKOCYTE ESTERASE,URINE NEGATIVE (NEGATIVE); NITRITE,URINE NEGATIVE (NEGATIVE)
[2016-05-21 09:47] LABS: ALANINE AMINOTRANSFERASE 69 IU/L (21-72); ALBUMIN 2.9 g/dL (3.5-5.0); ALKALINE PHOSPHATASE 103 IU/L (38-126); ANION GAP 14 mEq/L (8-16); ASPARTATE AMINOTRANSFERASE 40 IU/L (17-59); BILIRUBIN,TOTAL 0.9 mg/dL (0.1-1.4); BILIRUBIN-CONJUGATED 0.4 mg/dL (0.0-0.5); BILIRUBIN-UNCONJUGATED 0.5 mg/dL (0.0-1.1); CALCIUM 8.8 mg/dL (8.5-10.4); CARBON DIOXIDE 28 mEq/l (22-31); CHLORIDE 99 mEq/L (97-110); CREATININE 0.8 mg/dL (0.7-1.3); GLOMERULAR FILTRATION RATE > 60; GLUCOSE 112 mg/dL (70-100); SODIUM 141 mEq/L (134-144); TOTAL PROTEIN 6.4 g/dL (6.3-8.2)
[2016-05-21] MEDS ORDERED: ACETAMINOPHEN 325 MG TAB PO ONE (10:09)
[2016-05-21 10:23] VITALS: BP 117/67; PULSE 110; RESP 18; TEMP 100.7
== END 2016-05-21 10:21 | disposition home or self-care (01) ==
LOC: CED 08:07
DX: R10.9 Unspecified abdominal pain (principal); R50.9 Fever, unspecified; R00.0 Tachycardia, unspecified
CPT/HCPCS: 80048-PO; 80076-PO; 81003-PO; 83690-PO; 85025-PO; 96361-PO; 96374-PO; 99214-PO; G0463-PO

== ENCOUNTER 2016-09-12 13:01 | Emergency (ER) | payer OTHER ==
[2016-09-12] MEDS ORDERED: NS 1,000 ML IV ONE ×3 (13:29→14:43)
[2016-09-12 13:30] VITALS: RESP 18; TEMP 97.9
[2016-09-12] MEDS ORDERED: KETOROLAC 30 MG/1 ML SDV IVP ONE (13:44)
[2016-09-12] MEDS ORDERED: HALOPERIDOL LACT 5 MG/ML INJ IVP ONE (13:44)
[2016-09-12] MEDS ORDERED: HALOPERIDOL LACT 5 MG/ML INJ ONE (14:02)
[2016-09-12 14:19] LABS: % IMMATURE GRANULYOCYTES 0.5 % (0.0-1.1); ABSOLUTE IMMATURE GRANULOCYTES 0.07 10^3/uL (0.00-0.10); ADD DIFF? NO; ADD MORPH? NO; ADD SCAN? NO; ATYPICAL LYMPHOCYTE FLAG 0 (0-99); FRAGMENT RBC FLAG 0 (0-99); HEMATOCRIT 46.2 % (40.0-51.0); HEMOGLOBIN 16.8 g/dL (13.7-17.5); LEFT SHIFT FLG 0 (0-99); LIPEMIA HEMOLYSIS FLAG 90 (0-99); MEAN CELL HEMOGLOBIN 33.8 pg (27.9-34.1); MEAN CELL HEMOGLOBIN CONCENTR. 36.4 g/dL (32.4-36.7); MEAN PLATELET VOLUME 8.9 fL (8.7-11.7); PLATELET CLUMPS FLAG 0 (0-99); PLATELET COUNT 329 10^3/uL (150-400); RED BLOOD CELL COUNT 4.97 10^6/uL (4.40-6.38); RED CELL DISTRIBUTION WIDTH 11.9 % (11.5-15.2)
[2016-09-12 14:42] VITALS: PULSE 105
[2016-09-12 14:44] LABS: ALANINE AMINOTRANSFERASE 90 IU/L (21-72); ALBUMIN 3.8 g/dL (3.5-5.0); ALKALINE PHOSPHATASE 121 IU/L (38-126); ANION GAP 14 mEq/L (8-16); ASPARTATE AMINOTRANSFERASE 101 IU/L (17-59); BILIRUBIN,TOTAL 0.9 mg/dL (0.1-1.4); CALCIUM 9.4 mg/dL (8.5-10.4); CARBON DIOXIDE 26 mEq/l (22-31); CHLORIDE 100 mEq/L (97-110); CREATININE 0.8 mg/dL (0.7-1.3); GLOMERULAR FILTRATION RATE > 60; GLUCOSE 158 mg/dL (70-100); POTASSIUM 4.5 mEq/L (3.5-5.2); SODIUM 140 mEq/L (134-144); TOTAL PROTEIN 6.8 g/dL (6.3-8.2)
--- NOTE | 2016-09-12 14:56 | EDPHY ---
H & P Stated Complaint: upper abd pain since this am, ETOH drinking over weekend, hx pancreatitis Source: Patient Exam Limitations: No limitations - Medical/Surgical History Hx Asthma: No Hx Chronic Respiratory Disease: No Hx Diabetes: No Hx Cardiac Disease: No Hx Renal Disease: No Hx Cirrhosis: No Hx Alcoholism: No Hx HIV/AIDS: No Hx Splenectomy or Spleen Trauma: No Other PMH: duodenal ulcer-2017;S/P T&A-childhood, pancreatitis - Family History Significant Family History: No pertinent family hx - Social History Smoking Status: Former smoker Alcohol Use: Heavy (The patient admits drinking 6-7 drinks during the week and more on the weekend. On Monday he had 10 drinks of whiskey or so. Yesterday he only had 1 drink because of the onset of the epigastric pain.) Drug Use: None Time Seen by Provider: 09/12/16 13:31 HPI/ROS: This patient complains of epigastric pain onset yesterday evening and has worsened today. The pain radiates to his back, as described as achy and sharp in nature and currently 8/10 in intensity. He has associated nausea vomiting this morning after he took tramadol in attempt to relieve the pain. He reports the symptoms are very similar to prior episode of pancreatitis. He admits to resuming alcohol abuse within 2 weeks of his May admission for alcohol pancreatitis to [facility]. At that time gallbladder ultrasound was normal. He had mildly elevated transaminases that resolved with hydration and was discharged without complication after a short hospitalization. ROS: Constitutional: No fevers or chills. HEENT: No URI symptoms or other complaints. Pulmonary: No dyspnea or cough. Cardiovascular: No lightheadedness or heart palpitations. GI: No lower belly pain. No hematemesis. Normal bowel movements though he has not had 1 today. : No hematuria, dysuria or testicular pain. Musculoskeletal: No complaints Integumentary: No complaints Endocrine: No polyuria or polydipsia. Complete ROS is otherwise negative. (Lon Flores) - Medical/Surgical History PMH: Alcohol pancreatitis-05 30 admitted to [facility]. Normal gallbladder ultrasound at that time (Lon Flores) - Physical Exam Exam: General Appearance: Alert, no distress. Eyes: Pupils equal and round no pallor or injection. ENT, Mouth: Mucous membranes moist. Respiratory: There are no retractions, lungs are clear to auscultation. Cardiovascular: Regular rate and rhythm. Gastrointestinal: Mildly hypoactive bowel sounds with moderate epigastric tenderness. No guarding or rebound. No lower belly tenderness. No organomegaly is appreciated. Back: No CVA tenderness : No testicular tenderness Neurological: GCS 15 with no focal deficits. Skin: Warm and dry, no rashes. Extremities are symmetrical, full range of motion. Psychiatric: Slightly flat affect. Otherwise mood is normal DIFFERENTIAL DIAGNOSIS: After history and physical exam differential diagnosis was considered for alcohol gastritis, alcohol pancreatitis, hepatitis (Lon Flores) Constitutional: Initial Vital Signs Temperature (C) 36.6 C 09/12/16 13:28 Heart Rate 72 09/12/16 13:28 Respiratory Rate 18 09/12/16 13:28 Blood Pressure 146/93 H 09/12/16 13:28 O2 Sat (%) 96 09/12/16 13:28 O2 Delivery Mode Room Air Allergies/Adverse Reactions: No Known Allergies Allergy (Unverified 05/21/16 08:14) Home Medications: Medication Instructions Recorded Finasteride [Propecia] 0.5 mg PO DAILY 05/14/16 Ondansetron Odt [Zofran Odt 4 mg 4 mg PO Q4HRS PRN #20 tab 05/17/16 (*)] chlordiazePOXIDE [Librium 25 mg 25 mg PO TID #8 cap 05/17/16 (*)] guaiFENesin [Mucinex] 1,200 mg PO BID #10 tab.er.12h 05/17/16 oxyCODONE IR [Oxycodone Ir (*)] 5 - 10 mg PO Q4HRS PRN #10 tab 05/17/16 Hydrocodone/Acetaminophen [Fentress 1 - 2 tab PO Q6H PRN #16 tab 09/12/16 5/325 (*)] Medical Decision Making ED Course/Re-evaluation: IV normal saline bolus - 2L Toradol 30 mg IV, Zofran 4 mg IV, Haldol 2.5 mg IV Discussion: At 3:00 p.m., lipase is still pending as are chemistry machine is down chemistries were sent to [facility] lab for further testing. Suspect this patient does have alcohol pancreatitis versus gastritis. Further care final disposition is transfer to Dr. Garcia at 3:00 p.m.. ( Lon Flores) Other Provider: pt found to have elevated lipase. Offered admission for bowel rest and fluids. He refuses admit and plans to go home and rest his bowel, follow up wit pcp and will go to [facility] if he worsens and needs admission. Imp acute pancreatitis plan home bowel rest short term rx for norco, #12 (JarrodStephanie B) - Data Points Laboratory Results: Laboratory Results 09/12/16 14:15 09/12/16 14:15 09/12/16 09/12/16 09/12/16 14:15 14:15 13:01 WBC 15.49 10^3/uL H 10^3/uL (3.80-9.50) RBC 4.97 10^6/uL 10^6/uL (4.40-6.38) Hgb 16.8 g/dL g/dL (13.7-17.5) Hct 46.2 % % (40.0-51.0) MCV 93.0 fL fL (81.5-99.8) MCH 33.8 pg pg (27.9-34.1) MCHC 36.4 g/dL g/dL (32.4-36.7) RDW 11.9 % % (11.5-15.2) Plt Count 329 10^3/uL 10^3/uL (150-400) MPV 8.9 fL fL (8.7-11.7) Neut % (Auto) 88.4 % H % (39.3-74.2) Lymph % (Auto) 5.6 % L % (15.0-45.0) Bowman % (Auto) 5.3 % % (4.5-13.0) Eos % (Auto) 0.0 % L % (0.6-7.6) Baso % (Auto) 0.2 % L % (0.3-1.7) Nucleat RBC Rel Count 0.0 % % (0.0-0.2) Absolute Neuts (auto) 13.71 10^3/uL H 10^3/uL (1.70-6.50) Absolute Lymphs (auto) 0.86 10^3/uL L 10^3/uL (1.00-3.00) Absolute Monos (auto) 0.82 10^3/uL H 10^3/uL (0.30-0.80) Absolute Eos (auto) 0.00 10^3/uL L 10^3/uL (0.03-0.40) Absolute Basos (auto) 0.03 10^3/uL 10^3/uL (0.02-0.10) Absolute Nucleated RBC 0.00 10^3/uL 10^3/uL (0-0.01) Immature Gran % 0.5 % % (0.0-1.1) Immature Gran # 0.07 10^3/uL 10^3/uL (0.00-0.10) Sodium 140 mEq/L mEq/L (134-144) Potassium 4.5 mEq/L mEq/L (3.5-5.2) Chloride 100 mEq/L mEq/L (97-110) Carbon Dioxide 26 mEq/l mEq/l (22-31) Anion Gap 14 mEq/L mEq/L (8-16) BUN 9 mg/dL mg/dL (7-23) Creatinine 0.8 mg/dL mg/dL (0.7-1.3) Estimated GFR > 60 Glucose 158 mg/dL H mg/dL (70-100) Calcium 9.4 mg/dL mg/dL (8.5-10.4) Total Bilirubin 0.9 mg/dL mg/dL (0.1-1.4) AST 101 IU/L H IU/L (17-59) ALT 90 IU/L H IU/L (21-72) Alkaline Phosphatase 121 IU/L IU/L (38-126) Total Protein 6.8 g/dL g/dL (6.3-8.2) Albumin 3.8 g/dL g/dL (3.5-5.0) Lipase Cancelled 4124.0 IU/L H IU/L (23-300) Medications Given: Discontinued Medications Haloperidol Lactate (Haldol Injection) 2.5 mg IVP EDNOW ONE Stop: 09/12/16 13:45 Last Admin: 09/12/16 14:06 Dose: 2.5 mg Sodium Chloride (Ns) 1,000 mls @ 0 mls/hr IV ONCE ONE PRN Reason: Wide Open Stop: 09/12/16 13:30 Last Admin: 09/12/16 14:05 Dose: 1,000 mls Sodium Chloride (Ns) 1,000 mls @ 0 mls/hr IV EDNOW ONE; Wide Open PRN Reason: Protocol Stop: 09/12/16 13:44 Last Admin: 09/12/16 14:57 Dose: 1,000 mls Ketorolac Tromethamine (Toradol) 30 mg IVP EDNOW ONE Stop: 09/12/16 13:45 Last Admin: 09/12/16 14:04 Dose: 30 mg Departure - Departure Disposition: Home, Routine, Self-Care Clinical Impression: Acute alcoholic pancreatitis, Acute pancreatitis Condition: Good Instructions: Pancreatitis (ED) Additional Instructions: Follow up with your primary care doctor in the next 3-5 days. Return to Emergency for any further problems. Referrals: Kamaljit Santos DO [Primary Care Provider] - As per Instructions Prescriptions: Hydrocodone/Acetaminophen [Fentress 5/325 (*)] 1 - 2 tab PO Q6H PRN #16 tab PRN Reason: Pain, Moderate
[2016-09-12 18:27] VITALS: BP 128/78; O2SAT 97
== END 2016-09-12 15:51 | disposition home or self-care (01) ==
LOC: CED 13:01
DX: K85.20 Alcohol induced acute pancreatitis without necrosis or infection (principal); E86.9 Volume depletion, unspecified; Z87.891 Personal history of nicotine dependence
CPT/HCPCS: 80053-PO; 85025-PO; 96374; J1885